=== PATIENT | female | born 1980 | race Caucasian/White ===

== ENCOUNTER 2016-06-20 06:31 | Emergency (ER) | payer SELFPAY ==
[2016-06-20 06:49] VITALS: BP 148/78; PULSE 77; RESP 20; TEMP 98.1; O2SAT 100
[2016-06-20] MEDS ORDERED: CLIN1CAP6 PO (07:01)
[2016-06-20] MEDS ORDERED: IBUP-988 PO (07:01)
[2016-06-20] MEDS ORDERED: CLON.5 PO (07:01)
[2016-06-20 07:09] VITALS: O2SAT 97
[2016-06-20] MEDS ORDERED: ASPIRIN 81 MG CHEW TAB PO ONE (07:15)
[2016-06-20] MEDS ORDERED: SODIUM CHLORIDE 0.9% FLUSH 10 ML FLUSH IVF PRN (07:15)
[2016-06-20 07:16] LABS: AUTOMATED NEUTROPHIL # 3.8 TH/MM3 (1.8-7.7); BASOPHIL # 0.1 TH/MM3 (0-0.2); BASOPHIL % 0.9 % (0.0-2.0); EOSINOPHIL # 0.7 TH/MM3 (0-0.4); EOSINOPHIL % 8.7 % (0.0-4.0); HEMO FLAGS DIFF FINAL; LYMPH % 37.5 % (9.0-44.0); MEAN CELL VOLUME 94.5 FL (80.0-100.0); MEAN CORPUSCULAR HEMOGLOBIN 31.5 PG (27.0-34.0); MEAN CORPUSCULAR HGB CONC 33.3 % (32.0-36.0); NEUT % 46.9 % (16.0-70.0); PLATELET COUNT 292 TH/MM3 (150-450); RED BLOOD COUNT 4.02 MIL/MM3 (4.00-5.30); RED CELL DISTRIBUTION WIDTH 13.8 % (11.6-17.2); WHITE BLOOD COUNT 8.1 TH/MM3 (4.0-11.0)
--- NOTE | 2016-06-20 07:17 | PD ---
HPI Chief Complaint: Chest Pain Time Seen by Provider: 07:02 Travel History International Travel<30 days: No Contact w/Intl Traveler<30days: No Traveled to known affect area: No History of Present Illness HPI Patient is a 35-year-old female who presents to emergency room with complaint of chest pain. Patient reports that she has been having chest pain on and off all night last night, reports that chest pain feels like a pressure/sharp stabbing sensation to her chest. Patient reports that her chest pain is all across her upper chest, reports it's nonradiating in nature. Patient reports that when she has her symptoms, she does feel a little diaphoretic and does have shortness of breath with her symptoms. Patient reports that she woke up this morning around 6 AM and had persistent symptoms, reports that nothing makes symptoms better or worse. Patient reports that she has history of anxiety disorder, reports that she has had history of chest pain similar to this in the past and was due to anxiety. Patient does endorse a remote history of diabetes, hyperlipidemia, reports that she had "weight loss surgery" and was taken off all her medications as she is no longer diabetic and no longer has high cholesterol. Patient does admit to smoking history, reports that she has cut down to 5 cigarettes per day. Patient also endorses that since , she has had a cough, reports that coughing does exacerbate her symptoms. Patient with no fevers or chills or any recent travels. Patient reports that she does have family history of coronary disease as her father had a cardiac stent in his late 40s Patient also endorses that she is currently on clindamycin as she needs a root canal, reports that she has an infected tooth and she has not completed her root canal surgeries. [facility] Past Medical History Anxiety: Yes Depression: Yes Diminished Hearing: No Medical other: Yes (INCOMPLETE ROOT CANAL-ABSCESS TOOTH 06/20/16) Tetanus Vaccination: < 5 Years Influenza Vaccination: No ?: Unknown LMP: 06/18/16 : 3 Para: 1 Miscarriage: 1 : 1 Dilation and Curettage (D&C): Yes (2ND TRIMESTER DEMISE) Past Surgical History Abdominal Surgery: Yes (GASTRIC SLEEVE) Other Surgery: Yes (BLOOD CLOT REMOVAL FROM ABDOMEN) Social History Alcohol Use: Yes (1 GLASS OF WINE EACH NIGHT) Tobacco Use: Yes (5-10 CIGARETTES A DAY) Substance Use: No Allergies-Medications (Allergen,Severity, Reaction): Coded Allergies: No Known Allergies (Unverified , 06/20/16) Reported Meds & Prescriptions Reported Meds & Active Scripts Active Reported Advil (Ibuprofen) 200 Mg Tab 400 Mg PO ONCE Klonopin (Clonazepam) 0.5 Mg Tab 0.5 Mg PO BID Clindamycin (Clindamycin HCl) 300 Mg Cap 300 Mg PO TID Review of Systems General / Constitutional: No: Fever Eyes: No: Visual changes HENT: No: Headaches Cardiovascular: Positive: Chest Pain or Discomfort, Diaphoresis Respiratory: Positive: Cough, Shortness of Breath Gastrointestinal: No: Abdominal Pain Genitourinary: No: Dysuria Musculoskeletal: No: Pain Skin: No Rash Neurologic: No: Weakness Psychiatric: No: Depression Endocrine: No: Polydipsia Hematologic/Lymphatic: No: Easy Bruising Physical Exam Narrative GENERAL: No acute distress, nontoxic SKIN: Focused skin assessment warm/dry. HEAD: Atraumatic. Normocephalic. EYES: Pupils equal and round. No scleral icterus. No injection or drainage. ENT: No nasal bleeding or discharge. Mucous membranes pink and moist. NECK: Trachea midline. No JVD. CARDIOVASCULAR: Regular rate and rhythm. No murmur appreciated. RESPIRATORY: No accessory muscle use. Clear to auscultation. Breath sounds equal bilaterally. GASTROINTESTINAL: Abdomen soft, non-tender, nondistended. Hepatic and splenic margins not palpable. MUSCULOSKELETAL: No obvious deformities. No clubbing. No cyanosis. No edema. NEUROLOGICAL: Awake and alert. No obvious cranial nerve deficits. Motor grossly within normal limits. Normal speech. PSYCHIATRIC: Patient anxious on exam Data Data Last Documented VS Vital Signs Date Time Temp Pulse Resp B/P Pulse Ox O2 Delivery O2 Flow Rate FiO2 06/20/16 07:57 52 18 121/75 98 Room Air 06/20/16 06:49 98.1 Orders Ckmb (Isoenzyme) Profile (06/20/16 07:06) Complete Blood Count With Diff (06/20/16 07:06) Comprehensive Metabolic Panel (06/20/16 07:06) Magnesium (Mg) (06/20/16 07:06) Prothrombin Time / Inr (Pt) (06/20/16 07:06) Act Partial Throm Time (Ptt) (06/20/16 07:06) Troponin I (06/20/16 07:06) Lipase (06/20/16 07:06) Chest, Single Ap (06/20/16 07:06) Ecg Monitoring (06/20/16 07:06) Iv Access Insert/Monitor (06/20/16 07:06) Oximetry (06/20/16 07:06) Sodium Chloride 0.9% Flush (Ns Flush) (06/20/16 07:15) Ed Urine Pregnancytest Poc (06/20/16 07:06) Aspirin Chew (Aspirin Chew) (06/20/16 07:15) Nitroglycerin Sl (Nitrostat Sl) (06/20/16 07:15) CKMB (06/20/16 06:42) CKMB% (06/20/16 06:42) Famotidine Inj (Pepcid Inj) (06/20/16 07:45) Al-Mag Hy-Si 40-40-4 Mg/Ml Liq (Mag-Al P (06/20/16 07:45) Lidocaine 2% Viscous (Xylocaine 2% Visco (06/20/16 07:45) Labs Laboratory Tests Test 06/20/16 06:42 White Blood Count 8.1 TH/MM3 Red Blood Count 4.02 MIL/MM3 Hemoglobin 12.7 GM/DL Hematocrit 38.0 % Mean Corpuscular Volume 94.5 FL Mean Corpuscular Hemoglobin 31.5 PG Mean Corpuscular Hemoglobin 33.3 % Concent Red Cell Distribution Width 13.8 % Platelet Count 292 TH/MM3 Mean Platelet Volume 8.4 FL Neutrophils (%) (Auto) 46.9 % Lymphocytes (%) (Auto) 37.5 % Monocytes (%) (Auto) 6.0 % Eosinophils (%) (Auto) 8.7 % Basophils (%) (Auto) 0.9 % Neutrophils # (Auto) 3.8 TH/MM3 Lymphocytes # (Auto) 3.0 TH/MM3 Monocytes # (Auto) 0.5 TH/MM3 Eosinophils # (Auto) 0.7 TH/MM3 Basophils # (Auto) 0.1 TH/MM3 CBC Comment DIFF FINAL Differential Comment Prothrombin Time 10.7 SEC Prothromb Time International 1.0 RATIO Ratio Activated Partial 28.1 SEC Thromboplast Time Sodium Level 141 MEQ/L Potassium Level 3.6 MEQ/L Chloride Level 106 MEQ/L Carbon Dioxide Level 26.5 MEQ/L Anion Gap 9 MEQ/L Blood Urea Nitrogen 14 MG/DL Creatinine 0.78 MG/DL Estimat Glomerular Filtration 83 ML/MIN Rate Random Glucose 85 MG/DL Calcium Level 8.4 MG/DL Magnesium Level 1.8 MG/DL Total Bilirubin 0.5 MG/DL Aspartate Amino Transf 25 U/L (AST/SGOT) Alanine Aminotransferase 24 U/L (ALT/SGPT) Alkaline Phosphatase 62 U/L Total Creatine Kinase 256 U/L Creatine Kinase MB 2.9 NG/ML Creatine Kinase MB % 1.1 % Troponin I LESS THAN 0.02 NG/ML Total Protein 7.2 GM/DL Albumin 3.4 GM/DL Lipase 173 U/L MDM Medical Decision Making Medical Screen Exam Complete: Yes Emergency Medical Condition: Yes Interpretation(s) EKG at 0635 shows normal sinus rhythm at 74 bpm, QT/QTc 386/410, no acute st or t wave changes Vital Signs Date Time Temp Pulse Resp B/P Pulse Ox O2 Delivery O2 Flow Rate FiO2 06/20/16 06:49 98.1 77 20 148/78 100 Differential Diagnosis ACS, arrhythmia, pneumothorax, PE, electrolyte abnormality, acute bronchitis Narrative Course Patient is a 35-year-old female who presents to emergency room with complaints of chest pain. Patient reports that she has been having on and off chest pain since last night, reports that nothing brings her chest pain on. Patient reports that chest pain feels like a pressure/sharp pain and is located across her chest wall. Patient does feel a little short of breath and diaphoretic with her symptoms but endorses that this happens when she has anxiety attacks. Reports that when she gets anxiety attacks, she has similar symptoms of chest pain and reports "i always think that I am having a heart attack when i'm not having one". Patient reports that symptoms have been on and off all my, reports that symptoms have persisted since 6 AM this morning. Patient was placed on a seat cover cutter upon arrival to the emergency room. EKG obtained, patient with normal sinus rhythm at 74 bpm, no ST or T-wave changes. X-ray of the chest ordered. Plan to obtain labs including cardiac enzymes, will continue to monitor patient on a seat cover cutter. Sublingual nitroglycerin was ordered to evaluate if this does help with her symptoms. Laboratory Tests Test 06/20/16 06:42 White Blood Count 8.1 TH/MM3 (4.0-11.0) Red Blood Count 4.02 MIL/MM3 (4.00-5.30) Hemoglobin 12.7 GM/DL (11.6-15.3) Hematocrit 38.0 % (35.0-46.0) Mean Corpuscular Volume 94.5 FL (80.0-100.0) Mean Corpuscular Hemoglobin 31.5 PG (27.0-34.0) Mean Corpuscular Hemoglobin 33.3 % Concent (32.0-36.0) Red Cell Distribution Width 13.8 % (11.6-17.2) Platelet Count 292 TH/MM3 (150-450) Mean Platelet Volume 8.4 FL (7.0-11.0) Neutrophils (%) (Auto) 46.9 % (16.0-70.0) Lymphocytes (%) (Auto) 37.5 % (9.0-44.0) Monocytes (%) (Auto) 6.0 % (0.0-8.0) Eosinophils (%) (Auto) 8.7 % (0.0-4.0) Basophils (%) (Auto) 0.9 % (0.0-2.0) Neutrophils # (Auto) 3.8 TH/MM3 (1.8-7.7) Lymphocytes # (Auto) 3.0 TH/MM3 (1.0-4.8) Monocytes # (Auto) 0.5 TH/MM3 (0-0.9) Eosinophils # (Auto) 0.7 TH/MM3 (0-0.4) Basophils # (Auto) 0.1 TH/MM3 (0-0.2) CBC Comment DIFF FINAL Differential Comment Prothrombin Time 10.7 SEC (9.8-11.6) Prothromb Time International 1.0 RATIO Ratio Activated Partial 28.1 SEC Thromboplast Time (24.3-30.1) Sodium Level 141 MEQ/L (136-145) Potassium Level 3.6 MEQ/L (3.5-5.1) Chloride Level 106 MEQ/L (98-107) Carbon Dioxide Level 26.5 MEQ/L (21.0-32.0) Anion Gap 9 MEQ/L (5-15) Blood Urea Nitrogen 14 MG/DL (7-18) Creatinine 0.78 MG/DL (0.50-1.00) Estimat Glomerular Filtration 83 ML/MIN (>89) Rate Random Glucose 85 MG/DL (74-106) Calcium Level 8.4 MG/DL (8.5-10.1) Magnesium Level 1.8 MG/DL (1.5-2.5) Total Bilirubin 0.5 MG/DL (0.2-1.0) Aspartate Amino Transf 25 U/L (15-37) (AST/SGOT) Alanine Aminotransferase 24 U/L (10-53) (ALT/SGPT) Alkaline Phosphatase 62 U/L (45-117) Total Creatine Kinase 256 U/L (26-192) Creatine Kinase MB 2.9 NG/ML (0.5-3.6) Creatine Kinase MB % 1.1 % (0.0-4.0) Troponin I LESS THAN 0.02 NG/ML (0.02-0.05) Total Protein 7.2 GM/DL (6.4-8.2) Albumin 3.4 GM/DL (3.4-5.0) Lipase 173 U/L (73-393) Last Impressions Chest X-Ray 06/20/16 0706 Signed Impressions: Service Date/Time: Monday, June 20, 2016 07:14 - CONCLUSION: No acute disease. Km Browning MD Patient reports no relief of pain with SL nitro - reports that symptoms got worse with SL nitro. Will give GI cocktail Patient with Heart Score of 2-3 - patient with 0.9-1.7% risk of adverse cardiac event if she was discharged. This was reviewed with patient in detail. Patient offered admission to hospital for cardiac observation. Patient does not want to be admitted to the hospital and request to be discharged with outpatient follow up. She would rather follow up with aerophysicist as outpatient. Discussed with patient that she should not perform any exertional activity until she is seen and cleared by cardiology. Signs and symptoms of when to return to the emergency room was reviewed with patient in detail. Patient will take a baby aspirin daily, to return to emergency room if symptoms return. Diagnosis Primary Impression: Chest pain Qualified Code: R07.9 - Chest pain, unspecified type Referrals: Costa Calvert MD Patient Instructions: General Instructions Additional Instructions: Returns to emergency room if symptoms return Please call the aerophysicist and primary care doctor first thing in the morning for earliest follow-up appointment Please not perform any exertional activities until you're seen and cleared by aerophysicist Return to the emergency room as needed Please take a baby aspirin every day Disposition: 01 DISCHARGE HOME Condition: Stable Alva Norris DO June 20, 2016 07:17
[2016-06-20] MEDS: NITROGLYCERIN 0.4 MG SL 25 TABS/BTL SL SCH ×3 (07:22→07:34)
[2016-06-20 07:23] LABS: CHLORIDE 106 MEQ/L (98-107); POTASSIUM 3.6 MEQ/L (3.5-5.1); SODIUM (NA) 141 MEQ/L (136-145)
--- NOTE | 2016-06-20 07:23 | RADHPO ---
EXAM DATE/TIME: 06/20/2016 07:14 [facility] COMPARISON: No previous studies available for comparison. INDICATIONS : Chest pain MEDICAL HISTORY : None. SURGICAL HISTORY : None. ENCOUNTER: Initial ACUITY: 1 day PAIN SCORE: 7/10 LOCATION: Bilateral chest FINDINGS: A single view of the chest demonstrates the lungs to be symmetrically aerated without evidence of mas s, infiltrate or effusion. The cardiomediastinal contours are unremarkable. Osseous structures are intact. CONCLUSION: No acute disease. Km Browning MD on June 20, 2016 at 7:20 Board Certified Radiologist. This report was verified electronically.
[2016-06-20 07:24] VITALS: BP 143/80; PULSE 72; RESP 18; O2SAT 99
[2016-06-20 07:27] LABS: ANION GAP 9 MEQ/L (5-15); BICARBONATE 26.5 MEQ/L (21.0-32.0); MAGNESIUM 1.8 MG/DL (1.5-2.5)
[2016-06-20 07:28] LABS: BLOOD UREA NITROGEN 14 MG/DL (7-18)
[2016-06-20 07:30] LABS: ALT (GPT) 24 U/L (10-53); AST (GOT) 25 U/L (15-37); GLOMERULAR FILTRATION RATE 83 ML/MIN (>89)
[2016-06-20 07:32] VITALS: BP 137/81; PULSE 68; RESP 18; O2SAT 98
[2016-06-20 07:32] LABS: TOTAL BILIRUBIN ADULT 0.5 MG/DL (0.2-1.0)
[2016-06-20 07:33] LABS: ALKALINE PHOSPHATASE 62 U/L (45-117); CREATINE KINASE 256 U/L (26-192)
[2016-06-20 07:36] LABS: APTT (PATIENT) 28.1 SEC (24.3-30.1); PROTHROMBIN TIME - PATIENT 10.7 SEC (9.8-11.6)
[2016-06-20] MEDS ORDERED: ALUMINUM/MAGNESIUM/SIMETH 30 ML CUP PO ONE (07:45)
[2016-06-20] MEDS ORDERED: LIDOCAINE VISCOUS 2% SOLN 15 ML UDC PO ONE (07:45)
[2016-06-20] MEDS ORDERED: FAMOTIDINE 20 MG/2 ML VIAL IV PUSH ONE (07:45)
[2016-06-20 07:46] LABS: CKMB 2.9 NG/ML (0.5-3.6)
[2016-06-20 07:57] VITALS: BP 121/75; PULSE 52; RESP 18; O2SAT 98
--- NOTE | 2016-06-20 10:35 | EKG ---
Date Performed: 06/20/2016 Time Performed: 06:35:52 PTAGE: 35 years EKG: Sinus rhythm . Poor R wave progression - probable normal variant Borderline ECG NO PREVIOUS TRACING DOCTOR: Costa Calvert Interpretating Date/Time 06/20/2016 10:33:58
== END 2016-06-20 08:29 | disposition home or self-care (01) ==
LOC: PHED 06:31
DX: R07.9 Chest pain, unspecified (principal); R61 Generalized hyperhidrosis; R06.02 Shortness of breath; R94.31 Abnormal electrocardiogram [ECG] [EKG]; F17.210 Nicotine dependence, cigarettes, uncomplicated
CPT/HCPCS: 71010; 80053; 82550; 82552; 83690; 83735; 84484; 84703; 85025; 85610; 85730; 93005; 96374

== ENCOUNTER 2016-10-29 16:27 | Emergency (ER) | payer OTHER ==
[~2016-10-29] VITALS: Ht 162.6 cm; Wt 100.0 kg
[~2016-10-29 16:27] MED LIST: CLIN1CAP6 PO; CLON.5 PO; IBUP-988 PO
[2016-10-29 16:30] VITALS: BP 133/73; PULSE 70; RESP 16; TEMP 98.6; O2SAT 98
--- NOTE | 2016-10-29 16:33 | PD ---
HPI Chief Complaint: cp Time Seen by Provider: 16:29 Travel History International Travel<30 days: No Contact w/Intl Traveler<30days: No Traveled to known affect area: No History of Present Illness HPI patient pcp with [facility] dr be....h/o htn/high chol and dm pre gastric sleeve in 2011...however since then she states "free of previous diagnosis"... 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 PFSH Past Medical History Anxiety: Yes Depression: Yes Diminished Hearing: No : 3 Para: 1 Miscarriage: 1 : 1 Dilation and Curettage (D&C): Yes (2ND TRIMESTER DEMISE) Past Surgical History Abdominal Surgery: Yes (GASTRIC SLEEVE) Other Surgery: Yes (BLOOD CLOT REMOVAL FROM ABDOMEN) Social History Alcohol Use: Yes (1 GLASS OF WINE EACH NIGHT) Tobacco Use: Yes (5-10 CIGARETTES A DAY) Substance Use: No Allergies-Medications (Allergen,Severity, Reaction): Coded Allergies: No Known Allergies (Unverified , 06/20/16) Reported Meds & Prescriptions Reported Meds & Active Scripts Active Reported Klonopin (Clonazepam) 0.5 Mg Tab 0.5 Mg PO BID Review of Systems Except as stated in HPI: all other systems reviewed are Neg Cardiovascular: Positive: Chest Pain or Discomfort Gastrointestinal: Positive: Nausea Physical Exam Narrative GENERAL: SKIN: Warm and dry. HEAD: Atraumatic. Normocephalic. EYES: Pupils equal and round. No scleral icterus. No injection or drainage. ENT: No nasal bleeding or discharge. Mucous membranes pink and moist. NECK: Trachea midline. No JVD. CARDIOVASCULAR: Regular rate and rhythm. no mrg RESPIRATORY: No accessory muscle use. Clear to auscultation. Breath sounds equal bilaterally. GASTROINTESTINAL: Abdomen soft, non-tender, nondistended. MUSCULOSKELETAL: Extremities without clubbing, cyanosis, or edema. No obvious deformities. NEUROLOGICAL: Awake and alert. No obvious cranial nerve deficits. Motor grossly within normal limits. Five out of 5 muscle strength in the arms and legs. Normal speech. PSYCHIATRIC: Appropriate mood and affect; insight and judgment normal. Data Data Last Documented VS Vital Signs Date Time Temp Pulse Resp B/P (MAP) Pulse Ox O2 Delivery O2 Flow Rate FiO2 10/29/16 17:44 67 16 134/71 (92) 99 Room Air 10/29/16 16:30 98.6 Orders Orders Electrocardiogram (10/29/16 16:33) Complete Blood Count With Diff (10/29/16 16:33) Comprehensive Metabolic Panel (10/29/16 16:33) Troponin I (10/29/16 16:33) B-Type Natriuretic Peptide (10/29/16 16:33) Prothrombin Time / Inr (Pt) (10/29/16 16:33) Act Partial Throm Time (Ptt) (10/29/16 16:33) Urinalysis - C+S If Indicated (10/29/16 16:33) Thyroid Stimulating Hormone (10/29/16 16:33) Chest, Single Ap (10/29/16 16:33) Ed Urine Pregnancytest Poc (10/29/16 16:33) Drug Screen, Random Urine (10/29/16 16:33) Alcohol (Ethanol) (10/29/16 16:33) Salicylates (Aspirin) (10/29/16 16:33) Tylenol (Acetaminophen) (10/29/16 16:33) Ondansetron Inj (Zofran Inj) (10/29/16 16:45) Sodium Chlor 0.9% 1000 Ml Inj (Ns 1000 M (10/29/16 16:45) Creatine Kinase (Cpk) (10/29/16 16:53) Morphine Inj (Morphine Inj) (10/29/16 17:30) Metoclopramide Inj (Reglan Inj) (10/29/16 17:45) CKMB (10/29/16 16:40) CKMB% (10/29/16 16:40) Ns (Bolus) Inj (10/29/16 18:15) Labs Laboratory Tests Test 10/29/16 16:15 10/29/16 16:40 Urine Color YELLOW Urine Turbidity CLEAR Urine pH 7.0 Urine Specific [place] 1.011 Urine Protein NEG mg/dL Urine Glucose (UA) NEG mg/dL Urine Ketones NEG mg/dL Urine Occult Blood MOD Urine Nitrite NEG Urine Bilirubin NEG Urine Leukocyte Esterase NEG Urine RBC 0-3 /hpf Urine WBC 0-2 /hpf Urine Squamous Epithelial Cells 0-5 /hpf Urine Bacteria FEW /hpf Urine Mucus FEW /lpf Microscopic Urinalysis Comment CULT NOT INDICATED Urine Opiates Screen NEG Urine Barbiturates Screen NEG Urine Amphetamines Screen NEG Urine Benzodiazepines Screen POS Urine Cocaine Screen NEG Urine Cannabinoids Screen NEG White Blood Count 7.4 TH/MM3 Red Blood Count 3.89 MIL/MM3 Hemoglobin 12.4 GM/DL Hematocrit 37.0 % Mean Corpuscular Volume 95.2 FL Mean Corpuscular Hemoglobin 31.9 PG Mean Corpuscular Hemoglobin Concent 33.5 % Red Cell Distribution Width 13.4 % Platelet Count 249 TH/MM3 Mean Platelet Volume 7.9 FL Neutrophils (%) (Auto) 47.7 % Lymphocytes (%) (Auto) 36.8 % Monocytes (%) (Auto) 6.5 % Eosinophils (%) (Auto) 8.3 % Basophils (%) (Auto) 0.7 % Neutrophils # (Auto) 3.5 TH/MM3 Lymphocytes # (Auto) 2.7 TH/MM3 Monocytes # (Auto) 0.5 TH/MM3 Eosinophils # (Auto) 0.6 TH/MM3 Basophils # (Auto) 0.1 TH/MM3 CBC Comment DIFF FINAL Differential Comment Prothrombin Time 10.5 SEC Prothromb Time International Ratio 1.0 RATIO Activated Partial Thromboplast Time 28.5 SEC Blood Urea Nitrogen 12 MG/DL Creatinine 0.94 MG/DL Random Glucose 90 MG/DL Total Protein 7.9 GM/DL Albumin 3.7 GM/DL Calcium Level 8.3 MG/DL Alkaline Phosphatase 65 U/L Aspartate Amino Transf (AST/SGOT) 25 U/L Alanine Aminotransferase (ALT/SGPT) 26 U/L Total Bilirubin 0.3 MG/DL Sodium Level 137 MEQ/L Potassium Level 4.0 MEQ/L Chloride Level 104 MEQ/L Carbon Dioxide Level 25.9 MEQ/L Anion Gap 7 MEQ/L Estimat Glomerular Filtration Rate 67 ML/MIN Total Creatine Kinase 297 U/L Troponin I LESS THAN 0.02 NG/ML B-Type Natriuretic Peptide LESS THAN 2 PG/ML Thyroid Stimulating Hormone 3rd Gen 1.370 uIU/ML Ethyl Alcohol Level LESS THAN 3 MG/DL MDM Medical Decision Making Medical Screen Exam Complete: Yes Emergency Medical Condition: Yes Medical Record Reviewed: Yes Interpretation(s) nsr, 71, nl intervals , no stemi pattern, Differential Diagnosis heat related illness v stemi v dehydration v anemia v electrolyte abn v blanca v rhabdo Narrative Course patient after thorough evaluation, cxr no e/o pna/ptx or widened mediastinum.....ekg no stemi.......no e/o kidney or liver failure, but mild e/o dehydration which may be related to heat illness Diagnosis Primary Impression: heat related illness Patient Instructions: General Instructions, Heat Exhaustion (ED) Disposition: 01 DISCHARGE HOME Condition: Stable Sarkis Burgess MD Oct 29, 2016 16:33
[2016-10-29] MEDS ORDERED: ONDANSETRON HCL 4 MG/2 ML VIAL IV PUSH ONE (16:45)
[2016-10-29] MEDS ORDERED: SODIUM CHLOR 0.9% 1000 ML INJ 1,000 ML IV ONE ×2 (16:45→18:15)
[2016-10-29 16:56] LABS: AUTOMATED NEUTROPHIL # 3.5 TH/MM3 (1.8-7.7); BASOPHIL # 0.1 TH/MM3 (0-0.2); BASOPHIL % 0.7 % (0.0-2.0); EOSINOPHIL # 0.6 TH/MM3 (0-0.4); EOSINOPHIL % 8.3 % (0.0-4.0); HEMO FLAGS DIFF FINAL; LYMPH % 36.8 % (9.0-44.0); LYMPHOCYTE # 2.7 TH/MM3 (1.0-4.8); MEAN CELL VOLUME 95.2 FL (80.0-100.0); MEAN CORPUSCULAR HEMOGLOBIN 31.9 PG (27.0-34.0); MEAN CORPUSCULAR HGB CONC 33.5 % (32.0-36.0); MONO % 6.5 % (0.0-8.0); NEUT % 47.7 % (16.0-70.0); PLATELET COUNT 249 TH/MM3 (150-450); RED BLOOD COUNT 3.89 MIL/MM3 (4.00-5.30); RED CELL DISTRIBUTION WIDTH 13.4 % (11.6-17.2); WHITE BLOOD COUNT 7.4 TH/MM3 (4.0-11.0)
[2016-10-29 17:01] LABS: BLOOD, URINE MOD (NEG); GLUCOSE,URINE NEG (NEG); KETONE, URINE NEG (NEG); NITRITE,URINE NEG (NEG)
[2016-10-29 17:03] LABS: CHLORIDE 104 MEQ/L (98-107); SODIUM (NA) 137 MEQ/L (136-145)
[2016-10-29 17:07] LABS: ANION GAP 7 MEQ/L (5-15); BICARBONATE 25.9 MEQ/L (21.0-32.0); BLOOD UREA NITROGEN 12 MG/DL (7-18)
[2016-10-29 17:09] LABS: ALCOHOL LESS THAN 3 MG/DL (0-5)
[2016-10-29 17:10] LABS: ALT (GPT) 26 U/L (10-53); APTT (PATIENT) 28.5 SEC (24.3-30.1); AST (GOT) 25 U/L (15-37); GLOMERULAR FILTRATION RATE 67 ML/MIN (>89); PROTHROMBIN TIME - PATIENT 10.5 SEC (9.8-11.6)
[2016-10-29 17:11] LABS: TOTAL BILIRUBIN ADULT 0.3 MG/DL (0.2-1.0)
[2016-10-29 17:12] LABS: ALKALINE PHOSPHATASE 65 U/L (45-117)
[2016-10-29 17:21] LABS: MUCUS URINE FEW /lpf (OCC); RBC, URINE 0-3 /hpf (0-3); SQUAMOUS EPITHELIAL CELL URINE 0-5 /hpf (0-5); URINE COLOR YELLOW (YELLW/STRAW); WBC, URINE 0-2 /hpf (0-5)
[2016-10-29 17:22] LABS: BACTERIA, URINE FEW /hpf; COMMENT (UR) CULT NOT INDICATED; CULTURE IF INDICATED CULT NOT INDICATED
--- NOTE | 2016-10-29 17:25 | RADRPT ---
EXAM DATE/TIME: 10/29/2016 16:55 [facility] COMPARISON: CHEST SINGLE AP, June 20, 2016, 7:14. INDICATIONS : Chest pain. MEDICAL HISTORY : Heart murmur SURGICAL HISTORY : None. ENCOUNTER: Initial ACUITY: 1 day PAIN SCORE: 8/10 LOCATION: Bilateral chest FINDINGS: A single view of the chest demonstrates the lungs to be symmetrically aerated without evidence of mas s, infiltrate or effusion. The cardiomediastinal contours are unremarkable. Osseous structures are intact. CONCLUSION: No acute disease. Alessio De Leon MD FACR on October 29, 2016 at 17:23 Board Certified Radiologist. This report was verified electronically.
[2016-10-29] MEDS ORDERED: MORPHINE SULFATE 4 MG/ML INJ IV PUSH ONE (17:30)
[2016-10-29 17:44] VITALS: BP 134/71; PULSE 67; RESP 16; O2SAT 99
[2016-10-29] MEDS ORDERED: METOCLOPRAMIDE HCL 10 MG/2 ML VIAL IV PUSH ONE (17:45)
[2016-10-29 18:08] LABS: CKMB 2.4 NG/ML (0.5-3.6)
[2016-10-29 19:11] LABS: ACETAMINOPHEN LESS THAN 2.0 MCG/ML (10.0-30.0)
--- NOTE | 2016-10-30 06:07 | EKG ---
Date Performed: 10/29/2016 Time Performed: 16:21:11 PTAGE: 36 years EKG: Sinus rhythm NORMAL ECG INTERPRETATION BASED ON A DEFAULT AGE OF 38 YEARS No significant change from prior electr ocardiogram. NO PREVIOUS TRACING DOCTOR: Daniel Rm Interpretating Date/Time 10/30/2016 06:05:24
== END 2016-10-29 18:50 | disposition home or self-care (01) ==
LOC: PHED 16:27
DX: T67.5XXA Heat exhaustion, unspecified, initial encounter (principal); X30.XXXA Exposure to excessive natural heat, initial encounter; Y92.029 Unspecified place in mobile home as the place of occurrence of the external cause; Z72.0 Tobacco use
CPT/HCPCS: 71010; 80053; 80307; 81001; 82550; 82552; 83880; 84443; 84484; 84703; 85025; 85610; 85730; 93005; 96361; 96374; 96375; 99285; J2270; J2405; J2765; J7030